=== PATIENT | male | born 1975 | race Caucasian/White ===

== ENCOUNTER 2020-04-06 12:59 | Emergency (ER) | payer OTHER ==
[~2020-04-06] VITALS: Ht 175.3 cm; Wt 88.0 kg
[2020-04-06 13:14] VITALS: Ht 175.3 cm; Wt 88.0 kg
[2020-04-06 19:10] VITALS: BP 121/79
== END 2020-04-06 19:10 | disposition home or self-care (01) ==
LOC: ED 12:59
DX: M54.12 Radiculopathy, cervical region (principal)